=== PATIENT | male | born 1970 | race Caucasian/White ===

== ENCOUNTER 2020-06-27 07:45 | Emergency (ER) | payer MEDICARE, SELFPAY ==
[~2020-06-27] VITALS: Ht 172.7 cm; Wt 84.1 kg
--- NOTE | 2020-06-27 08:10 | NUR ---
pt is a 49/m who comes in complaining of dental pain and epigastric pain with increased bowel movements and increased urination x 2 weeks. provider at bedside for eval. cycling vitals and continuous sp02. call light within reach.
[2020-06-27] MEDS ORDERED: LORazepam 1MG TABLET PO ONE (08:30)
[2020-06-27] MEDS ORDERED: ONDANSETRON 2MG/ML, 2ML IVPush ONE (08:30)
[2020-06-27] MEDS ORDERED: FAMOTIDINE 20 MG/2 ML IVPush ONE (08:30)
[2020-06-27] MEDS ORDERED: SODIUM CHLORIDE FLUSH 10ML SYR IVF ONE (08:30)
[2020-06-27 08:36] LABS: MICROSCOPIC NOT IND
[2020-06-27 08:46] LABS: ALANINE AMINOTRANSFERASE 34 U/L (12-78); ANION GAP 9 mmol/L (5-15); CALCIUM 8.9 mg/dL (8.5-10.1); CHLORIDE 107 mmol/L (98-107); CREATININE 0.83 mg/dL (0.7-1.3)
[2020-06-27 08:48] LABS: ALKALINE PHOSPHATASE 84 U/L (45-117); BILIRUBIN,TOTAL 2.2 mg/dL (0.2-1.0)
--- NOTE | 2020-06-27 08:59 | NUR ---
pt ambulated to restroom with steady gait. states no pain at this time. ultrasound at bedside. no further needs
[2020-06-27 09:15] LABS: BASOPHILS % (AUTO) 1 % (0-1); EOSINOPHILS % (AUTO) 0 % (1-7); LYMPHOCYTES % (AUTO) 8 % (22-44); MD NO; MEAN CORPUSCULAR HEMOGLOBIN 33.3 pg (27.5-34.5); MEAN CORPUSCULAR HGB CONC 34.6 g/dL (33.2-36.2); MEAN PLATELET VOLUME 7.8 fL (7.4-10.4); MONOCYTES % (AUTO) 6 % (2-9); NEUTROPHILS % (AUTO) 84 % (42-75); PLATELET COUNT 350 x10^3/uL (130-400); RED BLOOD COUNT 4.46 x10^6/uL (4.38-5.82); RED CELL DISTRIBUTION WIDTH 14.1 % (9.4-14.8)
--- NOTE | 2020-06-27 09:23 | NUR ---
Ultrasound finished at bedside. pt ambulates to bathroom without assistance
--- NOTE | 2020-06-27 10:03 | NUR ---
Patient/Caregiver given discharge instructions and they have confirmed that they understand the instructions. Patient ambulatory with steady gait.
[2020-06-27 10:04] VITALS: BP 129/90
== END 2020-06-27 10:08 | disposition home or self-care (01) ==
LOC: ED 08:25
DX: K29.00 Acute gastritis without bleeding (principal); K02.9 Dental caries, unspecified; R10.13 Epigastric pain; Z87.891 Personal history of nicotine dependence
CPT/HCPCS: 36415; 76700; 80053; 81003; 83690; 85025; 99284